=== PATIENT | male | born 1950 | race Caucasian/White ===

== ENCOUNTER → 2021-11-25 01:48 | Outpatient (CLI) | payer BC, SELFPAY ==
[2021-11-25 11:24] LABS: SARS-CoV-2 RNA PCR Negative
== END ==
PROVIDERS: PCP Internal Medicine Geriatric Medicine; Visit Provider Internal Medicine Gastroenterology
DX: Z01.812 Encounter for preprocedural laboratory examination (principal); Z20.822 Contact with and (suspected) exposure to COVID-19
CPT/HCPCS: C9803; U0003; U0005

== ENCOUNTER 2021-11-28 00:08 | Day surgery (SDC) | payer BC, SELFPAY ==
[2021-09-23 08:49] VITALS: BMI 26.6
[2021-11-17 08:49] VITALS: BMI 28.3
--- NOTE | 2021-11-27 13:51 | WPDANESEPPF ---
Anes - Initial Pre Proc Eval Procedure: Operation Date: 11/28/21 07:30 Proposed Procedures p Screening Colonoscopy - Dominic Nguyen MD Date/Time: 11/27/21 13:51 Surgeon: Dominic Nguyen MD Pre Op Diagnosis: neoplasm screening Patient Data Age: 71 Gender: M Height: 1.7 m Weight: 82 kg Allergies Allergy/AdvReac Type Severity Reaction Status Date / Time No Known Allergies Allergy Mild Verified 11/28/21 06:13 Home Medications Medication Instructions Recorded Confirmed Type aspirin 81 mg PO DAILY 09/23/21 11/28/21 History cholecalciferol (vitamin D3) 50 mcg PO DAILY 09/23/21 11/28/21 History [Vitamin D3] diazepam 5 mg PO PRN PRN 09/23/21 11/28/21 History levothyroxine 150 mcg PO DAILY 09/23/21 11/28/21 History [id number]-ME-Hc-Cd-adjlmui-lutein 1 tablet PO DAILY 09/23/21 11/28/21 History [Centrum] simvastatin 40 mg PO DAILY 09/23/21 11/28/21 History Patient hx anesthesia problems: none Family hx anesthesia problems: none Results Review: All pre-operative results and documents have been reviewed as part of the pre-operative evaluation. [facility] Past Medical History Medical History Arthritis Graves disease Hypercholesterolemia Social History Social History Smoking status: Never smoker Alcohol intake: never Substance use: never Substance use type: does not use Living arrangements: with family Spiritual care concerns: No Anes - Eval Final PreProcedure Day of Procedure 11/27/21 13:51 Patient weight: overweight Heart: regular rate and rhythm Lungs: clear to auscultation and normal air movement Airway: Mallampati scale class II Neurological: alert and oriented Last oral intake: >/= 8 hours ASA classification: II Emergent: no Anesthetic plan: proceed Anesthesia type and monitoring: general GIVS Results Review: All pre-operative results and documents have been reviewed as part of the pre-operative evaluation. Informed Consent: The patient's anesthetic plan and its attendant risks and benefits were discussed with the patient/family/POA. Questions were solicited and answers provided to the satisfaction of the patient/family/POA.
--- NOTE | 2021-11-27 14:04 | PM.HPGS ---
History of Present Illness History of Present Illness Consent: Risks, benefits, and alternatives have been discussed and questions answered. Patient agrees to proceed with procedure. Chief complaint: neoplasm screening Narrative: Jose Sarabia is a 71 year old male Here for colon cancer screening. His last colonoscopy was 11 years ago Review of Systems Review of Systems: All systems reviewed & are unremarkable except as noted in HPI and below PMFSH Past Medical History Medical History Arthritis Graves disease Hypercholesterolemia Social History Social History Smoking status: Never smoker Alcohol intake: never Substance use: never Substance use type: does not use Living arrangements: with family Spiritual care concerns: No Meds Home Medications and Allergies Home Medications Medication Instructions Recorded Confirmed Type aspirin 81 mg PO DAILY 09/23/21 11/28/21 History cholecalciferol (vitamin D3) 50 mcg PO DAILY 09/23/21 11/28/21 History [Vitamin D3] diazepam 5 mg PO PRN PRN 09/23/21 11/28/21 History levothyroxine 150 mcg PO DAILY 09/23/21 11/28/21 History [id number]-mfk-RW-Ok-Ye-fxfepug-lutein 1 tablet PO DAILY 09/23/21 11/28/21 History [Centrum] simvastatin 40 mg PO DAILY 09/23/21 11/28/21 History Allergies Allergy/AdvReac Type Severity Reaction Status Date / Time No Known Allergies Allergy Mild Verified 11/28/21 06:13 Exam Resp: Auscultation: clear to auscultation bilaterally Cardio: Rate: regular rate Rhythm: regular rhythm GI: GI Palp: Yes Soft to palpation and No Tenderness to palpation present (GI) Assessment and Plan Assessment and plan (1) Colon cancer screening: Code(s): Z12.11 - Encounter for screening for malignant neoplasm of colon Status: Acute Assessment and Plan: Colonoscopy with possible biopsy or polypectomy or cautery or injection of substances.
[2021-11-28 06:14] VITALS: BP 141/73; PULSE 62; RESP 16; TEMP 36.5; O2SAT 99
[2021-11-28] MEDS: LACTATED RINGERS 1,000 ML 150 ML IV CONT (06:25)
[2021-11-28 07:38] VITALS: BP 106/79; BP 109/67; PULSE 65; PULSE 78; RESP 16; RESP 25; O2SAT 100; O2SAT 97
[2021-11-28 07:58] VITALS: BP 145/79; PULSE 63; RESP 13; O2SAT 100
== END 2021-11-28 08:08 | disposition home or self-care (01) ==
PROVIDERS: PCP Internal Medicine Geriatric Medicine; Visit Provider Internal Medicine Gastroenterology
PROC: 0DJD8ZZ Inspection of Lower Intestinal Tract, Via Natural or Artificial Opening Endoscopic (ICD-10-PCS; CPT 45378; principal; 2021-11-28 07:30)
DX: Z12.11 Encounter for screening for malignant neoplasm of colon (principal); K64.8 Other hemorrhoids; D12.4 Benign neoplasm of descending colon; D12.5 Benign neoplasm of sigmoid colon; E78.00 Pure hypercholesterolemia, unspecified; E05.00 Thyrotoxicosis with diffuse goiter without thyrotoxic crisis or storm; Z79.82 Long term (current) use of aspirin
CPT/HCPCS: 45385; 88305; J2704; J7120